=== PATIENT | female | born 1985 ===

== ENCOUNTER 2017-11-19 08:00 | Outpatient (CLI) | payer OTHER, SELFPAY | END 2017-11-19 08:01 | disposition home or self-care (01) | LOC: BICULT 08:00 | PROVIDERS: ATTEND Nurse Practitioner Family | DX: R10.2 Pelvic and perineal pain (principal); R93.8 Abnormal findings on diagnostic imaging of other specified body structures; N85.4 Malposition of uterus | CPT/HCPCS: 76856 ==